=== PATIENT | male | born 1990 | race Caucasian/White ===

== ENCOUNTER 2018-07-31 11:30 | Emergency (ER) | payer SELFPAY ==
[2018-07-31] MEDS: CYCLOBENZAPRINE 10 MG TAB PO (14:19)
[2018-07-31] MEDS: KETOROLAC 60 MG INJ IM (14:19)
[2018-07-31] MEDS: ACETAMINOPHEN 500 MG TAB PO (14:19)
== END 2018-07-31 15:15 | disposition home or self-care (01) ==
LOC: FTE 11:30 → E/R 15:15
DX: M54.5 Low back pain (principal)
CPT/HCPCS: 96372; 99284-25